=== PATIENT | female | born 1950 | race Caucasian/White ===

== ENCOUNTER 2016-09-16 22:38 | Emergency (ER) | payer OTHER ==
[~2016-09-16] VITALS: Ht 165.1 cm; Wt 79.5 kg
[~2016-09-16 22:38] MED LIST: ACET325T47 PO; ASPI-556 PO; ATOR20TA86 PO; BECL8.7A6 IH; CARV3 PO; DSS100 PO; FERR-89 PO; FOLI1 PO; GLIM4 PO; METF500T4 PO; MULT-959 PO; NITR.4 SL; OMEP20 PO; SITA100 PO
[2016-09-16 23:02] LABS: GLUCOSE,POINT OF CARE 232 MG/DL (70-110)
[2016-09-17] MEDS ORDERED: SODIUM CHLORIDE 0.9% 1,000 ML IV ONE (00:45)
[2016-09-17 00:59] VITALS: BP 114/72
[2016-09-17 01:18] LABS: EOSINOPHILS % (AUTO) 0 % (1.0-6.0); HEMATOCRIT 35.6 % (36-46); HEMOGLOBIN 11.8 g/dL (12.0-16.0); LYMPHOCYTES # (AUTO) 0.5 K/uL (1.0-4.8); LYMPHOCYTES % (AUTO) 4.3 % (22.0-44.0); MEAN CORPUSCULAR HGB CONC 33.1 G/dL (31.0-37.0); MEAN CORPUSCULAR VOLUME 88 fL (80-100); MONOCYTES # (AUTO) 0.9 K/uL (0.1-1.0); MONOCYTES % (AUTO) 7.3 % (2.0-9.0); NEUTROPHILS # (AUTO) 10.9 K/uL (1.8-7.7); PLATELET COUNT (AUTO) 147 K/uL (150-450); RED BLOOD CELL COUNT(AUTO) 4.06 MIL/uL (4.00-5.20); RED CELL DISTRIBUTION WIDTH 13.5 % (11.5-14.5); WHITE BLOOD COUNT (AUTO) 12.3 K/uL (4.5-11.0)
[2016-09-17 01:20] LABS: NEUTROPHILS % (AUTO) 88.4 % (40.0-70.0)
[2016-09-17 01:26] LABS: CREATININE 2.07 mg/dL (0.60-1.30)
[2016-09-17] MEDS ORDERED: CEPHALEXIN MONOHYDRATE 500 MG CAPSULE PO ONE (01:30)
[2016-09-17 01:32] LABS: ALBUMIN 3.3 g/dL (3.4-5.0); BILIRUBIN,TOTAL 0.5 mg/dL (0.1-1.0); TOTAL PROTEIN, SERUM 7.4 g/dL (6.4-8.2)
[2016-09-17 01:44] LABS: APPEARANCE,URINE TURBID (CLEAR); GLUCOSE, URINE (UA) 100 mg/dL (NEGATIVE); KETONES,URINE NEGATIVE (NEGATIVE); LEUKOCYTE ESTERASE ,URINE MODERATE (NEGATIVE); OCCULT BLOOD,URINE LARGE (NEGATIVE); PROTEIN,URINE SEE CONFIRM (NEGATIVE)
[2016-09-17 01:47] LABS: ADD UA MICROSCOPIC YES
[2016-09-17 01:55] LABS: SULFOSALICYLIC ACID,URINE 1+ (Negative)
[2016-09-17 01:56] LABS: SQUAMOUS EPITHELIAL CELL,UR Moderate /LPF (None Seen)
== END 2016-09-17 01:36 | disposition home or self-care (01) ==
LOC: EMS 22:42
DX: N39.0 Urinary tract infection, site not specified (principal); N12 Tubulo-interstitial nephritis, not specified as acute or chronic; E11.65 Type 2 diabetes mellitus with hyperglycemia; E87.1 Hypo-osmolality and hyponatremia; E11.29 Type 2 diabetes mellitus with other diabetic kidney complication; N28.9 Disorder of kidney and ureter, unspecified; E78.00 Pure hypercholesterolemia, unspecified; Z91.14 Patient's other noncompliance with medication regimen
CPT/HCPCS: 36415; 80053; 81001; 81002; 82962; 85025; 87077; 87086; 99284; J7030

== ENCOUNTER 2017-07-13 20:48 | Emergency (ER) | payer OTHER ==
[~2017-07-13] VITALS: Ht 170.2 cm; Wt 86.4 kg
[2017-07-13] MEDS ORDERED: LOSA1TAB40 PO (21:05)
[2017-07-13] MEDS ORDERED: LORA5SOL62 PO (21:05)
[2017-07-13 21:07] LABS: GLUCOSE,POINT OF CARE 206 MG/DL (70-110)
[2017-07-13] MEDS ORDERED: CefTRIAXone SODIUM 1 GM/VIAL IM ONE (23:00)
[2017-07-13] MEDS ORDERED: ACETAMINOPHEN/CODEINE 300-30 MG TABLET PO ONE (23:00)
[2017-07-13] MEDS ORDERED: LIDOCAINE HCL/PF 1% 2 ML VIAL IM ONE (23:00)
[2017-07-14 00:29] VITALS: BP 137/71
== END 2017-07-14 00:31 | disposition home or self-care (01) ==
LOC: EMS 20:51
DX: L03.114 Cellulitis of left upper limb (principal); E11.65 Type 2 diabetes mellitus with hyperglycemia; I10 Essential (primary) hypertension; E78.00 Pure hypercholesterolemia, unspecified
CPT/HCPCS: 82962; 96372; 99283; J0696; J3490